=== PATIENT | female | born 1970 | race Two or more races ===

== ENCOUNTER 2021-05-02 15:13 | Emergency (ER) | payer OTHER ==
[2021-05-02 15:31] VITALS: BP 181/99; PULSE 112; TEMP 97.9; BMI 27.4
[2021-05-02 18:01] LABS: BASO % 1.1 % (0-2.0); EOS % 0.7 % (0-4.5); HEMATOCRIT 38.5 % (32.4-45.2); HEMOGLOBIN 13.3 GM/dL (10.7-15.3); LYMPH % 38.3 % (8-40); MCH 30.2 pg (25.7-33.7); MCHC 34.5 g/dl (32.0-36.0); MEAN CELL VOLUME 87.5 fl (80-96); MONO % 7.5 % (3.8-10.2); NEUT % 52.4 % (42.8-82.8); PLATELET COUNT 283 10^3/uL (134-434); RDW 13.6 % (11.6-15.6)
[2021-05-02 18:22] LABS: URINE APPEARANCE CLOUDY; URINE BILIRUBIN NEGATIVE (NEGATIVE); URINE COLOR YELLOW; URINE GLUCOSE (UA) TRACE (NEGATIVE); URINE KETONE NEGATIVE (NEGATIVE); URINE LEUK ESTERASE NEGATIVE (NEGATIVE); URINE NITRITE NEGATIVE (NEGATIVE); URINE PROTEIN NEGATIVE (NEGATIVE); URINE UROBILINOGEN 0.2 mg/dL (0.2-1.0)
[2021-05-02 18:36] LABS: ALBUMIN 4.1 g/dl (3.4-5.0); CALCIUM 9.4 mg/dL (8.5-10.1); MAGNESIUM 2.1 mg/dL (1.8-2.4)
[2021-05-02 18:40] LABS: CREATININE 0.7 mg/dL (0.55-1.3); PHOSPHOROUS 2.8 mg/dL (2.5-4.9)
[2021-05-02 18:41] LABS: BILIRUBIN,TOTAL 0.6 mg/dL (0.2-1); TOT PROT 8.6 g/dl (6.4-8.2)
== END 2021-05-02 19:25 | disposition home or self-care (01) ==
LOC: JER 15:13
DX: R42 Dizziness and giddiness (principal); R73.9 Hyperglycemia, unspecified
CPT/HCPCS: 36415; 70450-TC; 80053; 81003; 83735; 84100; 84443; 85025; 87086; 93005; 93010; 99285-25; C9803; U0003; U0005